=== PATIENT | female | born 1985 | race Caucasian/White ===

== ENCOUNTER 2021-01-27 18:59 | Emergency (ER) | payer SELFPAY ==
[~2021-01-27] VITALS: Ht 157.5 cm; Wt 72.6 kg
[2021-01-27] MEDS ORDERED: IBUPROFEN 400 MG TAB PO STA (19:43)
[2021-01-27] MEDS ORDERED: IBUPROFEN 400 MG TAB ONE (19:52)
[2021-01-27] MEDS ORDERED: CORTISPORIN-TC10 M1 LEFT EAR (19:57)
[2021-01-27] MEDS ORDERED: AUGMENTIN 875-1 EACH PO (19:59)
[2021-01-27] MEDS ORDERED: IBUPROFEN600 MG PO (20:00)
== END 2021-01-27 20:25 | disposition home or self-care (01) ==
LOC: FSED 19:29
DX: H60.92 Unspecified otitis externa, left ear (principal); F17.210 Nicotine dependence, cigarettes, uncomplicated
CPT/HCPCS: 99283